=== PATIENT | female | born 1990 | race Caucasian/White ===

== ENCOUNTER 2016-12-17 11:30 | Emergency (ER) | payer OTHER | END 2016-12-17 11:48 | disposition left against medical advice (07) | LOC: ER 11:30 | DX: R10.9 Unspecified abdominal pain (principal); R11.0 Nausea; R05 Cough; R50.9 Fever, unspecified; F31.9 Bipolar disorder, unspecified; F17.210 Nicotine dependence, cigarettes, uncomplicated; Z88.5 Allergy status to narcotic agent; Z88.6 Allergy status to analgesic agent | CPT/HCPCS: J2550 ==

== ENCOUNTER 2016-12-20 11:31 | Emergency (ER) | payer OTHER | END 2016-12-20 14:30 | disposition short-term general hospital (02) | LOC: ER 11:31 | DX: I13.0 Hypertensive heart and chronic kidney disease with heart failure and stage 1 through stage 4 chronic kidney disease, or unspecified chronic kidney disease (principal); N18.9 Chronic kidney disease, unspecified; I50.9 Heart failure, unspecified; N17.9 Acute kidney failure, unspecified; F31.9 Bipolar disorder, unspecified; J44.9 Chronic obstructive pulmonary disease, unspecified; Z88.5 Allergy status to narcotic agent; Z88.6 Allergy status to analgesic agent; Z99.2 Dependence on renal dialysis | CPT/HCPCS: 36415; 87502; 96365; 96366; 96368; 96375; 96376; J1940; J2060 ==

== ENCOUNTER 2017-01-17 14:43 | Emergency (ER) | payer OTHER | END 2017-01-17 16:28 | disposition home or self-care (01) | LOC: ER 14:43 | DX: R07.89 Other chest pain (principal); R05 Cough; F31.9 Bipolar disorder, unspecified; N18.6 End stage renal disease; F17.210 Nicotine dependence, cigarettes, uncomplicated; Z99.2 Dependence on renal dialysis; Z79.899 Other long term (current) drug therapy; Z88.5 Allergy status to narcotic agent; Z88.6 Allergy status to analgesic agent | CPT/HCPCS: 36415; 96374 ==